=== PATIENT | male | born 1960 | race Caucasian/White ===

== ENCOUNTER 2024-03-16 19:22 | Emergency (ER) | payer OTHER, BC, SELFPAY ==
[2024-03-16 19:24] VITALS: BP 155/80; PULSE 80; RESP 16; TEMP 37.1; O2SAT 99; BMI 28.0
--- NOTE | 2024-03-16 19:33 | EDS_ITS ---
HPI History of Present Illness HPI Narrative: 63-year-old male no significant past medical history. [id number]. Tetanus up-to-date in the last 3 years. Was at work today a piece of sheet metal cut his distal right forearm just proximal to the wrist within the last hour. No other injuries. He is right-hand dominant. Chief Complaint: Laceration Informant: patient Occured/Mechanism Mechanism/Context: Yes injury Onset/Context/Timing Onset: Hours Context: Sudden Onset Timing: Continuous Quality of Pain: Sharp Current Severity: Mild Maximum Severity: Mild Associated Symptoms Associated Symptoms: Negative for Parasthesia, Weakness or Loss of Funtion Narrative Narrative: 63-year-old [id number] male right forearm laceration on a piece of sheet metal at work within the last hour. Tetanus up-to-date. Tetanus Immunization: <5 years Prior similar symptoms: No Recent Illness/Hospitalization: No PFSH PFSH Allergy/AdvReac Type Severity Reaction Status Date / Time bupropion (From Wellbutrin) Allergy Severe Angioedema Verified 03/16/24 19:23 ROS ROS ED ROS Narrative Denies recent illness. Constitutional Constitutional ED: Denies chills or fever(s) Eyes Eyes: Denies blurry vision ENT ENT ED: Denies ear pain Cardiovascular Cardiovascular: Denies chest pain Respiratory/Chest Respiratory/Chest: Denies cough or dyspnea Gastrointestinal Gastrointestinal: Denies abdominal pain Genitourinary Genitourinary ED: Denies dysuria or hematuria Musculoskeletal Musculoskeletal: Denies back pain Integumentary Denies abscess or Abrasions Neurologic Neurologic: Denies headache(s) Psychiatric Psychiatric: Denies anxiety or depression Endocrine Endocrinology: Denies cold intolerance Hematologic/Lymphatic Hematologic/Lymphatic: Denies easy bleeding Allergic/Immunologic Allergic/Immunologic ED: Denies mouth swelling EXAM Physical Exam Narrative Exam Narrative: Well-appearing 63-year-old male. Vital signs are stable afebrile. H EENT exam unremarkable atraumatic. Pupils round react light. Neck nontender. Lungs clear. Heart regular rhythm rate about 80 no murmur. Chest wall ribs no ntender. Abdomen soft nontender. Moving all 4 extremities. Normal range of motion. Neurovascular intact. Right distal forearm just proximal to his wrist is a diagonal laceration 2-1/2 to 3 inches in length. Involves the skin and subcu tissue. Currently no active bleeding dried blood. No pulsatile bleeding. Radial ulnar pulses distal to the wounds are intact. Right hand is neurovascularly intact with full range of motion. Normal touch sensation and cap refill. Wound will need to be repaired. Otherwise exam unremarkable. Const Vital Signs: 03/16/24 19:24 Temperature 98.8 F Temperature Source Oral Pulse Rate 80 Respiratory Rate 16 Blood Pressure 155/80 H Blood Pressure Mean 105 Pulse Ox 99 Oxygen Delivery Method Room Air Positive well nourished and well developed; Negative for obese, cachectic, contractures or unkempt General Appearance ED: well developed and NAD; Negative for unkempt, cachectic, contractures, cyanotic or diaphoretic Nutritional Appearance: Negative for cachectic or obese HEENT Reports moist mucous membranes normocephalic and atraumatic Eyes PERRL and EOMs intact bilaterally Neck full ROM and supple Chest Wall inspection of chest normal and palpation of chest normal Resp normal respiratory effort and clear to auscultation bilaterally Cardio regular rate, regular rhythm, S1 normal heart sound, S2 normal heart sound and no murmurs GI non-tender, non-distended and no masses Back/Spine no CVA tenderness Extremity normal to inspection and full ROM Extremity Narrative: Except right distal forearm palmar aspect just before his right wrist he has a diagonal laceration 2-1/2 3 inches in length. Involves the skin and subcu tissue. No tendon, ligament, bone, joint or vascular involvement. No foreign body noted. No infection. General Extremety ED: Negative for edema General Extremity: Negative for edema Neuro oriented x3, CN's II-XII intact bilaterally, moves all extremities, no focal motor deficits and no sensory deficits noted Sensorium / Orientation: oriented to person, oriented to place and oriented to time; Negative for orientation impaired or lethargic Motor Exam: strength 5/5 throughout Psych mental status grossly normal Appearance: Negative for unkempt Attitude: No agitated Mood & Affect: Negative for depressed, anxious or tearful Skin Lesions: no lesions Rashes: no rashes Trauma: laceration MDM MDM MDM Narrative Medical decision making narrative: 63-year-old male Worker's Comp. right forearm laceration will need repaired. Tetanus up-to-date. History & Record Review Discussion w/independent historian: Patient Procedures Lacerations Right forearm laceration repair:: Length: 3 in Depth: Sub Q Shape: Linear Prep: Betadine Laceration repair: Irrigated, Lidocaine, Local and Skin sutures Number of Sutures/Umesh: 6 Suture Information: Ethilon, Simple and 4-0 Comment: Right distal forearm laceration. Palmar side. Just proximal to the wrist. Of the skin and subcu tissue. Patient washed it off in the sink. Locally anesthetized with lidocaine. Cleaned with Shur-Clens. Washed and irrigated with saline. Explored. Locally anesthetized with lidocaine. Closed using simple interrupted 4-0 Ethilon sutures. 6 simple and opted for Ethilon sutures. Proper hemostasis wound closure is obtained. Patient tolerated procedure well. Was instructed on wound care and suture removal in 7 to 10 days. Discharge Plan Triage Chief Complaint: Laceration ED Provider: Tadeo Rose Dx/Rx/DC Orders Clinical Impression: Laceration of forearm, right, Encounter related to worker's compensation claim Instructions: ED Laceration, All Closures Primary Care Provider: Benito Castrejon,Out of Referrals: [facility] [Group of Physicians] - 10 Day for suture removal Benito Castrejon,Out of [Primary Care Provider] - Activity Restrictions/Additional Instructions: Keep the area clean and dry. You can get it wet in the shower but dried off thoroughly. Do not let it soak in bath water or any other water. Clean daily with soap and water or peroxide and water. Apply antibiotic ointment. Tylenol for pain. Will watch for any signs of infection such as redness, swelling, streaks or pus of seen return. Stitches out in 10 days. Print Language: Lithuanian Disposition Disposition: Home, Self Care
[2024-03-16] MEDS: Lidocaine 1% (20 ml mdv) 20 ML Vial INFILT (19:37)
== END 2024-03-16 20:27 | disposition home or self-care (01) ==
PROVIDERS: Emergency Provider Emergency Medicine; Visit Provider Emergency Medicine
DX: S51.811A Laceration without foreign body of right forearm, initial encounter (principal); W26.8XXA Contact with other sharp object(s), not elsewhere classified, initial encounter; Y99.0 Civilian activity done for income or pay
CPT/HCPCS: 12002; 99283